=== PATIENT | female | born 1940 | race Caucasian/White ===

== ENCOUNTER 2017-02-11 16:04 | Emergency (ER) | payer OTHER ==
[~2017-02-11] VITALS: Ht 142.2 cm; Wt 60.0 kg
[~2017-02-11 16:04] MED LIST: ATOR80TA PO; CALTTAB2 PO; ESTE400C PO; MIAC200S; OMEP20TA39 PO; SPIR25 PO; TAB-TAB PO; VITA100T5 PO; VITA200017 PO; VITA50LO PO
[2017-02-11 16:13] VITALS: BP 142/66; PULSE 80; RESP 16; TEMP 98.2; O2SAT 98
--- NOTE | 2017-02-11 18:33 | PD ---
HPI Chief Complaint: Dizziness Time Seen by Provider: 18:33 Travel History International Travel<30 days: No Contact w/Intl Traveler<30days: No Traveled to known affect area: No History of Present Illness HPI 77-year-old female with a history of hypertension and hyperlipidemia presents to the emergency department for evaluation of dizziness for 2 weeks. Patient states that she feels dizzy as though the room is spinning and that she is off balance. States that she also feels as though her vision is not clear, states that she feels as though everything appears more torrez and less bright than it is typically. She states that initially she thought maybe she had allergies or cold but never developed any nasal congestion, cough or cold symptoms. She states that today while she was exercising she felt fatigued which is why she called her doctor and told him what was going on and he told her to come to the emergency department. She denies any headache, nausea, vomiting, chest pain, shortness of breath, difficulty breathing, abdominal pain, numbness or tingling , one-sided weakness, facial droop, dysuria. PCP Dr. Black. No other complaints. PFSH Past Medical History Hx Anticoagulant Therapy: Yes Diminished Hearing: No GERD: Yes Menopausal: Yes Past Surgical History Appendectomy: Yes Oral Surgery: Yes Social History Alcohol Use: No Tobacco Use: No Substance Use: No Allergies-Medications (Allergen,Severity, Reaction): Coded Allergies: No Known Allergies (Verified , 11/28/10) Reported Meds & Prescriptions Reported Meds & Active Scripts Active Reported Aspirin Adult Low Strength (Aspirin) 81 Mg Tabdr 81 Mg PO DAILY Multi Vitamin (Multiple Vitamin) 1 Tab Tab 1 Tab PO DAILY Calcium 600+D (Calcium Carbonate-Vitamin D) 600-400 Mg-Unit Tab 1 Tab PO DAILY Vitamin B-12 (Cyanocobalamin) 1,000 Mcg Tab 1,000 Mcg PO 4 TIMES A WEEK Vitamin C (Ascorbic Acid) 500 Mg Tab 500 Mg PO DAILY Vitamin E 400 Unit Tab 400 Units PO DAILY Pantoprazole (Pantoprazole Sodium) 40 Mg Tab 40 Mg PO DAILY Atorvastatin (Atorvastatin Calcium) 80 Mg Tab 80 Mg PO HS Spironolactone 25 Mg Tab 25 Mg PO DAILY Review of Systems Except as stated in HPI: all other systems reviewed are Neg Physical Exam Narrative GENERAL: Well-nourished and well-developed pleasant elderly female patient in no acute distress who is nontoxic appearing. SKIN: Warm and dry. HEAD: Normocephalic and atraumatic. EYES: No injection, drainage, or hyphema noted. PERRLA. EOMI. ENT: No nasal drainage noted. Oropharynx is clear and the TMs are normal with good landmarks. NECK: Supple and the trachea is midline. CARDIOVASCULAR: Regular rate and rhythm. RESPIRATORY: Breath sounds are equal bilaterally with no accessory muscle use, wheezing, rhonchi, or crackles. GASTROINTESTINAL: Abdomen is soft, non-tender, and nondistended. MUSCULOSKELETAL: No obvious deformities, swelling, cyanosis, or ecchymosis is present throughout the upper and lower extremities. Patient has full range of motion without any signs of neurovascular compromise. Strength 5/5 upper and lower extremities equal bilaterally. NEUROLOGICAL: Awake, alert, and oriented. Normal speech and gait. Normal heel to burch test. Normal rapid alternating movements. Mild difficulty with finger to nose test. Cranial nerves are grossly intact. Data Data Last Documented VS Vital Signs Date Time Temp Pulse Resp B/P Pulse Ox O2 Delivery O2 Flow Rate FiO2 02/11/17 20:27 66 20 171/70 95 02/11/17 18:55 Room Air 02/11/17 16:13 98.2 Orders Electrocardiogram (02/11/17 ) Complete Blood Count With Diff (02/11/17 18:31) Comprehensive Metabolic Panel (02/11/17 18:31) Prothrombin Time / Inr (Pt) (02/11/17 18:31) Act Partial Throm Time (Ptt) (02/11/17 18:31) Troponin I (02/11/17 18:31) Thyroid Stimulating Hormone (02/11/17 18:31) Urinalysis - C+S If Indicated (02/11/17 18:31) Chest, Single Ap (02/11/17 18:31) Ct Brain W/O Iv Contrast(Rout) (02/11/17 18:31) Blood Glucose (02/11/17 18:31) Ecg Monitoring (02/11/17 18:31) Iv Access Insert/Monitor (02/11/17 18:31) Oximetry (02/11/17 18:31) Sodium Chloride 0.9% Flush (Ns Flush) (02/11/17 18:45) Meclizine (Antivert) (02/11/17 18:45) Urine Culture (02/11/17 20:15) Mri Brain W&W/O Contrast (02/11/17 ) Labs Laboratory Tests Test 02/11/17 02/11/17 18:40 20:15 White Blood Count 6.8 TH/MM3 Red Blood Count 4.65 MIL/MM3 Hemoglobin 13.9 GM/DL Hematocrit 42.9 % Mean Corpuscular Volume 92.4 FL Mean Corpuscular Hemoglobin 29.9 PG Mean Corpuscular Hemoglobin 32.4 % Concent Red Cell Distribution Width 12.8 % Platelet Count 230 TH/MM3 Mean Platelet Volume 8.7 FL Neutrophils (%) (Auto) 57.6 % Lymphocytes (%) (Auto) 31.5 % Monocytes (%) (Auto) 9.5 % Eosinophils (%) (Auto) 0.6 % Basophils (%) (Auto) 0.8 % Neutrophils # (Auto) 3.9 TH/MM3 Lymphocytes # (Auto) 2.1 TH/MM3 Monocytes # (Auto) 0.6 TH/MM3 Eosinophils # (Auto) 0.0 TH/MM3 Basophils # (Auto) 0.1 TH/MM3 CBC Comment DIFF FINAL Differential Comment Prothrombin Time 10.7 SEC Prothromb Time International 1.0 RATIO Ratio Activated Partial 27.6 SEC Thromboplast Time Sodium Level 140 MEQ/L Potassium Level 4.3 MEQ/L Chloride Level 102 MEQ/L Carbon Dioxide Level 30.4 MEQ/L Anion Gap 8 MEQ/L Blood Urea Nitrogen 16 MG/DL Creatinine 0.88 MG/DL Estimat Glomerular Filtration 62 ML/MIN Rate Random Glucose 78 MG/DL Calcium Level 9.6 MG/DL Total Bilirubin 0.6 MG/DL Aspartate Amino Transf 29 U/L (AST/SGOT) Alanine Aminotransferase 31 U/L (ALT/SGPT) Alkaline Phosphatase 136 U/L Troponin I LESS THAN 0.02 NG/ML Total Protein 7.3 GM/DL Albumin 3.7 GM/DL Thyroid Stimulating Hormone 1.190 uIU/ML 3rd Gen Urine Color LIGHT-YELLOW Urine Turbidity CLEAR Urine pH 6.5 Urine Specific [place] 1.002 Urine Protein NEG mg/dL Urine Glucose (UA) NEG mg/dL Urine Ketones NEG mg/dL Urine Occult Blood SMALL Urine Nitrite NEG Urine Bilirubin NEG Urine Urobilinogen LESS THAN 2.0 MG/DL Urine Leukocyte Esterase MOD Urine RBC 2 /hpf Urine WBC 11 /hpf Urine Squamous Epithelial <1 /hpf Cells Urine Bacteria RARE /hpf Microscopic Urinalysis Comment CATH-CULTURE IND MDM Medical Decision Making Medical Screen Exam Complete: Yes Emergency Medical Condition: Yes Differential Diagnosis TIA versus CVA versus intracranial hemorrhage versus vertigo versus electrolyte abnormality Narrative Course 77-year-old female presents to the emergency department for evaluation of dizziness for 2 weeks. Patient is afebrile, vital signs are stable. Physical examination is essentially unremarkable. IV access is obtained, labs been drawn and sent. EKG shows sinus rhythm with no acute ST elevations or depressions. Patient is placed on cardiac telemetry and pulse oximetry monitoring. CT of the head has been ordered and is pending. CBC is unremarkable. CMP is unremarkable. Troponin is less than 0.02. TSH is within normal limits. Coags are unremarkable. Urinalysis shows small occult blood, moderate leukocyte esterase, 11 white blood cells, rare bacteria. Chest x-ray shows right basilar streakiness consistent with atelectasis and/or infiltrate. Head CT is negative for any acute abnormalities. My attending physician Dr. Badillo also evaluated the patient and we agree that the patient will undergo MRI of the brain to rule out CVA. If this is unremarkable she can be discharged home. Patient signed out to Dr. Badillo who will assume care of the patient and disposition. Hamida Sim Feb 11, 2017 18:33
[2017-02-11] MEDS ORDERED: MECLIZINE HCL 25 MG TAB PO ONE (18:45)
[2017-02-11] MEDS ORDERED: SODIUM CHLORIDE 0.9% FLUSH 10 ML FLUSH IVF PRN (18:45)
[2017-02-11] MEDS ORDERED: SPIR25TA PO (18:48)
[2017-02-11] MEDS ORDERED: PANT40TA3 PO (18:48)
[2017-02-11] MEDS ORDERED: CALCTAB38 PO (18:48)
[2017-02-11] MEDS ORDERED: NATU400T PO (18:48)
[2017-02-11] MEDS ORDERED: MULT-135 PO (18:48)
[2017-02-11] MEDS ORDERED: VITA500T PO (18:48)
[2017-02-11] MEDS ORDERED: ASPI1TAB91 PO (18:48)
[2017-02-11] MEDS ORDERED: VITA10002 PO (18:48)
[2017-02-11] MEDS ORDERED: ATOR1TAB18 PO (18:48)
[2017-02-11 18:54] LABS: AUTOMATED NEUTROPHIL # 3.9 TH/MM3 (1.8-7.7); BASOPHIL # 0.1 TH/MM3 (0-0.2); BASOPHIL % 0.8 % (0.0-2.0); EOSINOPHIL % 0.6 % (0.0-4.0); HEMATOCRIT 42.9 % (35.0-46.0); HEMO FLAGS DIFF FINAL; LYMPH % 31.5 % (9.0-44.0); LYMPHOCYTE # 2.1 TH/MM3 (1.0-4.8); MEAN CELL VOLUME 92.4 FL (80.0-100.0); MEAN CORPUSCULAR HEMOGLOBIN 29.9 PG (27.0-34.0); MEAN CORPUSCULAR HGB CONC 32.4 % (32.0-36.0); MONO % 9.5 % (0.0-8.0); NEUT % 57.6 % (16.0-70.0); PLATELET COUNT 230 TH/MM3 (150-450); RED BLOOD COUNT 4.65 MIL/MM3 (4.00-5.30); RED CELL DISTRIBUTION WIDTH 12.8 % (11.6-17.2); WHITE BLOOD COUNT 6.8 TH/MM3 (4.0-11.0)
[2017-02-11 18:55] VITALS: RESP 18; O2SAT 98
[2017-02-11 19:07] LABS: APTT (PATIENT) 27.6 SEC (24.3-30.1); PROTHROMBIN TIME - PATIENT 10.7 SEC (9.8-11.6)
[2017-02-11 19:18] LABS: ANION GAP 8 MEQ/L (5-15); AST (GOT) 29 U/L (15-37); BICARBONATE 30.4 MEQ/L (21.0-32.0); BLOOD UREA NITROGEN 16 MG/DL (7-18); CHLORIDE 102 MEQ/L (98-107); GLOMERULAR FILTRATION RATE 62 ML/MIN (>89); POTASSIUM 4.3 MEQ/L (3.5-5.1); SODIUM (NA) 140 MEQ/L (136-145)
--- NOTE | 2017-02-11 19:23 | RADRPT ---
EXAM DATE/TIME: 02/11/2017 19:01 [facility] COMPARISON: No previous studies available for comparison. INDICATIONS : Dizzy with blurred vision for 2 weeks. RADIATION DOSE: 56.77 CTDIvol (mGy) MEDICAL HISTORY : None SURGICAL HISTORY : None. ENCOUNTER: Initial ACUITY: 2 weeks PAIN SCALE: 1/10 LOCATION: cranial TECHNIQUE: Multiple contiguous axial images were obtained of the head. Using automated exposure control and adj ustment of the mA and/or kV according to patient size, radiation dose was kept as low as reasonably a chievable to obtain optimal diagnostic quality images. FINDINGS: CEREBRUM: The ventricles are normal for age. No evidence of midline shift, mass lesion, hemorrhage or acute in farction. No extra-axial fluid collections are seen. POSTERIOR FOSSA: The cerebellum and brainstem are intact. The 4th ventricle is midline. The cerebellopontine angle i s unremarkable. EXTRACRANIAL: The visualized portion of the orbits is intact. SKULL: The calvaria is intact. No evidence of skull fracture. CONCLUSION: No acute disease. Darrel Noguera MD on February 11, 2017 at 19:21 Board Certified Radiologist. This report was verified electronically.
[2017-02-11 19:28] LABS: ALKALINE PHOSPHATASE 136 U/L (45-117); ALT (GPT) 31 U/L (10-53); TOTAL BILIRUBIN ADULT 0.6 MG/DL (0.2-1.0)
--- NOTE | 2017-02-11 19:37 | RADRPT ---
EXAM DATE/TIME: 02/11/2017 18:31 [facility] COMPARISON: CHEST SINGLE AP, May 19, 2014, 17:27. INDICATIONS : Syncopal episode. Patient states dizziness and headache for the past two weeks. MEDICAL HISTORY : Hypertension. SURGICAL HISTORY : None. ENCOUNTER: Initial ACUITY: 2 weeks PAIN SCORE: 0/10 LOCATION: Bilateral chest FINDINGS: Right basilar streakiness is noted consistent with atelectasis and/or infiltrate. Clinical correlati on is recommended. The left lung is clear. The heart is stable. CONCLUSION: 1. Right basilar streakiness consistent with atelectasis and/or infiltrate. Clinical correlation is recommended. Darrel Noguera MD on February 11, 2017 at 19:25 Board Certified Radiologist. This report was verified electronically.
[2017-02-11 20:27] VITALS: BP 171/70; PULSE 66; RESP 20; O2SAT 95
[2017-02-11 20:40] LABS: BACTERIA, URINE RARE /hpf; BLOOD, URINE SMALL (NEG); GLUCOSE,URINE NEG (NEG); KETONE, URINE NEG (NEG); NITRITE,URINE NEG (NEG); PH, URINE 6.5 (5.0-8.5); SQUAMOUS EPITHELIAL CELL URINE <1 /hpf (0-5); URINE COLOR LIGHT-YELLOW (YELLW/STRAW)
[2017-02-11 20:41] LABS: COMMENT (UR) CATH-CULTURE IND; CULTURE IF INDICATED CATH CULTURE IND
--- NOTE | 2017-02-11 21:37 | PD ---
Physical Exam Narrative I, Dr. Badillo, have reviewed the advance practice practitioner's documentation and am in agreement, met with the patient face to face, made the diagnosis, and the medical decision making was done by me. *My assessment and Findings: Patient is a 77 year old female who comes in complaining of dizziness and feeling "not right." She says the dizziness is mostly when she is bending or standing up or laying down. She does say she went to [facility] the other day and she felt unwell during that time. Exam shows no neurologic abnormalities. Data Data Last Documented VS Vital Signs Date Time Temp Pulse Resp B/P Pulse Ox O2 Delivery O2 Flow Rate FiO2 02/11/17 23:21 60 20 147/67 97 02/11/17 18:55 Room Air 02/11/17 16:13 98.2 Orders Electrocardiogram (02/11/17 ) Complete Blood Count With Diff (02/11/17 18:31) Comprehensive Metabolic Panel (02/11/17 18:31) Prothrombin Time / Inr (Pt) (02/11/17 18:31) Act Partial Throm Time (Ptt) (02/11/17 18:31) Troponin I (02/11/17 18:31) Thyroid Stimulating Hormone (02/11/17 18:31) Urinalysis - C+S If Indicated (02/11/17 18:31) Chest, Single Ap (02/11/17 18:31) Ct Brain W/O Iv Contrast(Rout) (02/11/17 18:31) Blood Glucose (02/11/17 18:31) Ecg Monitoring (02/11/17 18:31) Iv Access Insert/Monitor (02/11/17 18:31) Oximetry (02/11/17 18:31) Sodium Chloride 0.9% Flush (Ns Flush) (02/11/17 18:45) Meclizine (Antivert) (02/11/17 18:45) Urine Culture (02/11/17 20:15) Mri Brain W&W/O Contrast (02/11/17 ) Gadodiamide Pf Inj (Omniscan Pf Inj) (02/11/17 23:01) Labs Laboratory Tests Test 02/11/17 02/11/17 18:40 20:15 White Blood Count 6.8 TH/MM3 Red Blood Count 4.65 MIL/MM3 Hemoglobin 13.9 GM/DL Hematocrit 42.9 % Mean Corpuscular Volume 92.4 FL Mean Corpuscular Hemoglobin 29.9 PG Mean Corpuscular Hemoglobin 32.4 % Concent Red Cell Distribution Width 12.8 % Platelet Count 230 TH/MM3 Mean Platelet Volume 8.7 FL Neutrophils (%) (Auto) 57.6 % Lymphocytes (%) (Auto) 31.5 % Monocytes (%) (Auto) 9.5 % Eosinophils (%) (Auto) 0.6 % Basophils (%) (Auto) 0.8 % Neutrophils # (Auto) 3.9 TH/MM3 Lymphocytes # (Auto) 2.1 TH/MM3 Monocytes # (Auto) 0.6 TH/MM3 Eosinophils # (Auto) 0.0 TH/MM3 Basophils # (Auto) 0.1 TH/MM3 CBC Comment DIFF FINAL Differential Comment Prothrombin Time 10.7 SEC Prothromb Time International 1.0 RATIO Ratio Activated Partial 27.6 SEC Thromboplast Time Sodium Level 140 MEQ/L Potassium Level 4.3 MEQ/L Chloride Level 102 MEQ/L Carbon Dioxide Level 30.4 MEQ/L Anion Gap 8 MEQ/L Blood Urea Nitrogen 16 MG/DL Creatinine 0.88 MG/DL Estimat Glomerular Filtration 62 ML/MIN Rate Random Glucose 78 MG/DL Calcium Level 9.6 MG/DL Total Bilirubin 0.6 MG/DL Aspartate Amino Transf 29 U/L (AST/SGOT) Alanine Aminotransferase 31 U/L (ALT/SGPT) Alkaline Phosphatase 136 U/L Troponin I LESS THAN 0.02 NG/ML Total Protein 7.3 GM/DL Albumin 3.7 GM/DL Thyroid Stimulating Hormone 1.190 uIU/ML 3rd Gen Urine Color LIGHT-YELLOW Urine Turbidity CLEAR Urine pH 6.5 Urine Specific [place] 1.002 Urine Protein NEG mg/dL Urine Glucose (UA) NEG mg/dL Urine Ketones NEG mg/dL Urine Occult Blood SMALL Urine Nitrite NEG Urine Bilirubin NEG Urine Urobilinogen LESS THAN 2.0 MG/DL Urine Leukocyte Esterase MOD Urine RBC 2 /hpf Urine WBC 11 /hpf Urine Squamous Epithelial <1 /hpf Cells Urine Bacteria RARE /hpf Microscopic Urinalysis Comment CATH-CULTURE IND MDM Supervised Visit with [facility]: Yes Narrative Course Urinalysis is positive for UTI. CT head and MRI brain show no acute abnormalities. Patient is feeling better after medication. Discharged with prescriptions for Macrobid and Meclizine. Advised to follow up with her doctor. Advised to return to the ED as needed for any worsening symptoms. Diagnosis Primary Impression: Dizziness Additional Impression: UTI (urinary tract infection) Qualified Code: N30.00 - Acute cystitis without hematuria Patient Instructions: Dizziness (ED), General Instructions, Urinary Tract Infection in Women (ED) Additional Instruction: Follow up with your doctor. Return to the ED as needed for any worsening symptoms. Scripts Meclizine 25 Mg Tab25 Mg PO TID PRN (VERTIGO) 10 Days Ref 0 Prov:Keily Badillo MD 02/12/17 Nitrofurantoin Monohydrate Macrocrystals (Macrobid)100 Mg Iwh650 Mg PO BID 7 Days Ref 0 Prov:Keily Badillo MD 02/12/17 Disposition: 01 DISCHARGE HOME Condition: Stable Keily Badillo MD Feb 11, 2017 21:37
--- NOTE | 2017-02-11 22:25 | EKG ---
Date Performed: 02/11/2017 Time Performed: 17:06:04 PTAGE: 77 years EKG: Sinus rhythm NORMAL ECG PREVIOUS TRACING : 05/19/2014 17.45 Compared to prior tracing no significant change DOCTOR: Will Rankin Interpretating Date/Time 02/11/2017 22:22:59
[2017-02-11] MEDS ORDERED: GADODIAMIDE PF 287 MG/ML 5 ML VIAL (for RAD MRI) IV ONE (23:01)
[2017-02-11 23:21] VITALS: BP 147/67; PULSE 60; RESP 20; O2SAT 97
--- NOTE | 2017-02-11 23:34 | RADRPT ---
EXAM DATE/TIME: 02/11/2017 22:39 [facility] COMPARISON: No previous studies available for comparison. INDICATIONS : CVA. CONTRAST: 12 cc Omniscan (gadodiamide) IV MEDICAL HISTORY : Hypertension. SURGICAL HISTORY : Appendectomy. Tonsillectomy. section. ENCOUNTER: Subsequent ACUITY: 1 day PAIN SCORE: 0/10 LOCATION: cranial TECHNIQUE: Multiplanar, multisequence MRI of the brain was performed both prior to and following the administrat ion of paramagnetic contrast. FINDINGS: CEREBRUM: The ventricles are normal for age. No evidence of midline shift, mass lesion, hemorrhage or acute in farction. No extraaxial fluid collections are seen. The pituitary gland and suprasellar cistern are normal in configuration. WHITE MATTER: Mild signal abnormalities are seen in the white matter. POSTERIOR FOSSA: The cerebellum and brainstem are intact. The 4th ventricle is midline. The cerebellopontine angle is unremarkable. The cerebellar tonsils are normal in position. DIFFUSION IMAGING: No focal areas of restricted diffusion are seen. No evidence of acute infarction. EXTRACRANIAL: The visualized portions of the orbits and paranasal sinuses are unremarkable. POST-CONTRAST: No abnormal areas of parenchymal or dural enhancement. No evidence of blood-brain barrier breakdown. CONCLUSION: 1. Mild white matter ischemic changes. No recent infarct identified. No acute findings. Attila Michaels MD on February 11, 2017 at 23:28 Board Certified Radiologist. This report was verified electronically.
[2017-02-12] MEDS ORDERED: MACR100C2 PO (00:02)
[2017-02-12] MEDS ORDERED: MECL-62 PO (00:02)
== END 2017-02-12 02:35 | disposition home or self-care (01) ==
LOC: NEPC 16:04
DX: R42 Dizziness and giddiness (principal); N30.00 Acute cystitis without hematuria; B96.89 Other specified bacterial agents as the cause of diseases classified elsewhere; E78.5 Hyperlipidemia, unspecified; I10 Essential (primary) hypertension; Z79.899 Other long term (current) drug therapy
CPT/HCPCS: 70450; 70553; 71010; 80053; 81001; 84443; 84484; 85025; 85610; 85730; 87086; 93005; 99284; A9579